=== PATIENT | female | born 1960 | race Caucasian/White ===

== ENCOUNTER 2020-01-15 09:34 | Outpatient (CLI) | payer BC, SELFPAY ==
--- NOTE | 2020-01-15 09:44 | MM_ITS ---
WS: [id number] SCREENING DIGITAL MAMMOGRAM WITH CAD HISTORY: SCREENING COMPARISON: 01/16/2019 and 01/14/2018 Bilateral CC and MLO views submitted. Computer aided detection analyzed. Breast composition: There are scattered areas of fibroglandular density. No suspicious masses, microc alcifications or architectural distortion. MM/[id number] IMPRESSION: BI-RADS: 1-Negative FOLLOW UP: 1 Year Follow-up
== END 2020-01-15 09:35 | disposition home or self-care (01) ==
LOC: RADSHAW 09:42
PROVIDERS: PCP Nurse Practitioner Family; Visit Provider Nurse Practitioner Family
DX: Z12.31 Encounter for screening mammogram for malignant neoplasm of breast (principal)
CPT/HCPCS: 77067

== ENCOUNTER 2021-03-10 10:34 | Outpatient (CLI) | payer BC, SELFPAY ==
--- NOTE | 2021-03-10 10:45 | MM_ITS ---
WS: [id number] BILATERAL SCREENING DIGITAL MAMMOGRAM WITH CAD HISTORY: SCREENING COMPARISON: 01/15/2020 and 01/16/2019 Bilateral CC and MLO views submitted. Computer aided detection analyzed. Breast composition: There are scattered areas of fibroglandular density. No suspicious masses, microc alcifications or architectural distortion. MM/[id number] IMPRESSION: BI-RADS: 1-Negative FOLLOW UP: 1 Year Follow-up
== END 2021-03-10 10:35 | disposition home or self-care (01) ==
LOC: RADSHAW 10:42
PROVIDERS: PCP Nurse Practitioner Family; Visit Provider Nurse Practitioner Family
DX: Z12.31 Encounter for screening mammogram for malignant neoplasm of breast (principal)
CPT/HCPCS: 77067

== ENCOUNTER 2022-09-06 09:16 | Outpatient (CLI) | payer OTHER, SELFPAY ==
--- NOTE | 2022-09-06 09:34 | MM_ITS ---
WS: [id number] SCREENING DIGITAL TOMOSYNTHESIS MAMMOGRAM WITH CAD HISTORY: SCREENING COMPARISON: 03/10/2021 and 01/15/2020 Bilateral CC and MLO with tomosynthesis views submitted. Synthetic mammography reviewed. Computer aid ed detection analyzed. Breast composition: There are scattered areas of fibroglandular density. No suspicious masses, microc alcifications or architectural distortion. MM/[id number] IMPRESSION: BI-RADS: 1-Negative FOLLOW UP: 1 Year Follow-up
== END 2022-09-06 09:17 | disposition home or self-care (01) ==
LOC: RAD 09:17
PROVIDERS: PCP Nurse Practitioner Family; Visit Provider Nurse Practitioner Family
DX: Z12.31 Encounter for screening mammogram for malignant neoplasm of breast (principal)
CPT/HCPCS: 77063; 77067

== ENCOUNTER 2022-12-30 18:22 | Emergency (ER) | payer OTHER, SELFPAY ==
--- NOTE | 2022-12-30 18:48 | ECG_ITS ---
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 Measurements Intervals [place] Rate: 80 P: 58 MN: 176 QRS: 63 QRSD: 96 T: 74 QT: 391 QTc: 452 Interpretive Statements SINUS RHYTHM POSSIBLE LEFT ATRIAL ENLARGEMENT [-0.1mV P-WAVE IN V1/V2] No previous ECG available for comparison Electronically Signed On 12-31-2022 20:57:43 CDT by Sharona Adler M.D. [id number]
--- NOTE | 2022-12-30 18:48 | CTR_ITS ---
PROCEDURE INFORMATION: Exam: CTA Chest With Contrast Exam date and time: 12/30/2022 9:16 PM Age: 62 years old Clinical indication: Pain and abnormal findings; Abnormal lab test; Abdominal pain; Other: N/a; Cough and shortness of breath; Patient HX: Cough, SOB, left flank pain, and diarrhea. Elevated wbc. Meniscus surgery in October 2022. ; Additional info: Flank pain, SOB TECHNIQUE: Imaging protocol: Computed tomographic angiography of the chest with contrast. Exam focused on the arteries. 3D rendering (Not supervised by radiologist): MIP and/or 3D reconstructed images were created by the technologist. Radiation optimization: All CT scans at this facility use at least one of these dose optimization techniques: automated exposure control; mA and/or kV adjustment per patient size (includes targeted exams where dose is matched to clinical indication); or iterative reconstruction. Contrast material: OMNI 350; Contrast volume: 100 ml; Contrast route: INTRAVENOUS (IV); REPORTING DATA: Count of CT and Cardiac NM exams in prior 12 months: This patient has received 0 known CTs and 0 known cardiac nuclear medicine studies in the 12 months prior to the current study. COMPARISON: No relevant prior studies available. RADIATION DOSE METRICS: Total DLP (mGy-cm): 1003.67 FINDINGS: Pulmonary arteries: Normal. No pulmonary emboli. Aorta: Unremarkable. No aortic aneurysm. No aortic dissection. Lungs: Patchy bilateral dependent atelectasis versus infiltrate. Pleural spaces: Unremarkable. No pneumothorax. No pleural effusion. Heart: Unremarkable. No cardiomegaly. No pericardial effusion. Lymph nodes: Scattered subcentimeter short axis nonspecific mediastinal lymph nodes. Bones/joints: Unremarkable. No acute fracture. Soft tissues: Unremarkable. PROCEDURE INFORMATION: Exam: CT Abdomen And Pelvis With Contrast Exam date and time: 12/30/2022 9:16 PM Age: 62 years old Clinical indication: Pain and abnormal findings; Abnormal lab test; Abdominal pain; Other: N/a; Cough and shortness of breath; Patient HX: Cough, SOB, left flank pain, and diarrhea. Elevated wbc. Meniscus surgery in October 2022. ; Additional info: Flank pain, SOB TECHNIQUE: Imaging protocol: Computed tomography of the abdomen and pelvis with contrast. Radiation optimization: All CT scans at this facility use at least one of these dose optimization techniques: automated exposure control; mA and/or kV adjustment per patient size (includes targeted exams where dose is matched to clinical indication); or iterative reconstruction. Contrast material: OMNI 350; Contrast volume: 100 ml; Contrast route: INTRAVENOUS (IV); REPORTING DATA: Count of CT and Cardiac NM exams in prior 12 months: This patient has received 0 known CTs and 0 known cardiac nuclear medicine studies in the 12 months prior to the current study. COMPARISON: No relevant prior studies available. RADIATION DOSE METRICS: Total DLP (mGy-cm): 1003.67 FINDINGS: Liver: Normal. No mass. Gallbladder and bile ducts: Cholelithiasis with gallbladder distension, ultrasound could further evaluate this. Pancreas: Normal. No ductal dilation. Spleen: Normal. No splenomegaly. Adrenal glands: Normal. No mass. Kidneys and ureters: Bilateral renal cysts, negative for follow-up advised. Right kidney lower pole nonobstructing calyceal stone. Mild heterogeneity of the kidneys, please correlate for pyelonephritis, heterogeneity a due to contrast bolus timing is also a consideration for the appearance. Stomach and bowel: Prominent fluid in the small bowel without dilation may reflect enteritis. Appendix: No evidence of appendicitis. Intraperitoneal space: Unremarkable. No free air. No significant fluid collection. Vasculature: Unremarkable. No abdominal aortic aneurysm. Lymph nodes: Unremarkable. No enlarged lymph nodes. Urinary bladder: Unremarkable as visualized. Reproductive: 16 mm calcified uterine fibroid. Bones/joints: Unremarkable. No acute fracture. Soft tissues: Unremarkable. CT/CT angio chest w abd pel w con IMPRESSION: 1. Negative for pulmonary embolus. 2. Scattered subcentimeter short axis nonspecific mediastinal lymph nodes. 3. Patchy bilateral dependent atelectasis versus infiltrate. IMPRESSION: 1. Cholelithiasis with gallbladder distension, ultrasound could further evaluate this. 2. Bilateral renal cysts, negative for follow-up advised. 3. Mild heterogeneity of the kidneys, please correlate for pyelonephritis, heterogeneity a due to contrast bolus timing is also a consideration for the appearance. 4. Right kidney lower pole nonobstructing calyceal stone. 5. Prominent fluid in the small bowel without dilation may reflect enteritis. 6. 16 mm calcified uterine fibroid. COMMENTS: Consistent with the [employer]'s Incidental Findings Committee white paper (J Am Salomon Radiol 2018): Any incidental renal lesion less than 1 cm or classified as too small to characterize, or any incidental cystic renal lesion characterized as simple-appearing, is likely benign. No follow-up imaging is recommended for these lesions per consensus recommendations based on imaging criteria.
[2022-12-30 18:52] VITALS: BP 138/74; PULSE 81; RESP 16; TEMP 36.6; O2SAT 95; BMI 24.4
[2022-12-30 19:53] LABS: Basophils # 0.1 10^3/uL (0.0-0.1); Basophils % 0.4 %; Hematocrit 42.7 % (37.0-47.0); Hemoglobin 13.2 g/dL (11.5-15.3); Lymphocytes # 0.9 10^3/uL (0.8-4.8); Lymphocytes % 7.1 %; Mean Corpuscular HGB Conc 30.9 g/dL (30.0-36.0); Mean Corpuscular Hemoglobin 31.1 pg (28.0-34.0); Mean Corpuscular Volume 100.5 fl (81-99); Mean Platelet Volume 10.8 fL (7.4-10.4); Monocytes % 7.3 %; Neutrophils # 11.26 10^3/uL (1.8-7.7); Neutrophils % 84.9 %; Nucleated Red Blood Cells % 0 %; Platelet Count 301 10^3/cmm (130-400); Red Blood Count 4.25 10^6/uL (4.1-5.3); White Blood Count 13.3 10^3/uL (4.0-10.0)
[2022-12-30 20:05] LABS: INR 0.97 (0.8-1.2); Partial Thromboplastin Time 28.1 SECONDS (23.9-36.7)
[2022-12-30 20:28] LABS: Alanine Aminotransferase 13 U/L (0-33); Albumin Level 4.2 g/dL (3.5-5.2); Alkaline Phosphatase 80 U/L (35-105); Aspartate Amino Transferase 17 U/L (0-32); Blood Urea Nitrogen 15 mg/dL (8-23); Calcium 9.3 mg/dL (8.5-10.5); Carbon Dioxide 23 mmol/L (22-29); Chloride 101 mmol/L (98-107); Creatinine Clr Calc Pharmacy 86.5391; Globulin 2.6 g/dL (1.3-4.6); Glomerular Filtration Rate 72.9 mL/min (90-130); Glucose 96 mg/dL (65-115); NT Pro B Type Natriuretic Pept 41 pg/mL (0-125); Osmolality Calculated 285 mOsm/kg (285-295); Sodium 137 mmol/L (136-145); Total Bilirubin 0.3 mg/dL (0.15-1.2); Total Protein 6.8 g/dL (6.6-8.7)
[2022-12-30 20:40] LABS: Troponin(5th) Baseline < 6 ng/L (0-10)
--- NOTE | 2022-12-30 20:48 | ECG_ITS ---
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 Measurements Intervals [place] Rate: 64 P: 12 IA: 193 QRS: 4 QRSD: 98 T: -4 QT: 430 QTc: 445 Interpretive Statements SINUS RHYTHM Compared to ECG 12/30/2022 19:06:20 No significant changes Electronically Signed On 12-31-2022 21:09:14 CDT by Sharona Adler M.D. [id number]
[2022-12-30] MEDS: iohexol 350 mg/mL 500 mL Btl (per mL) IV (21:17)
[2022-12-30 22:13] LABS: Urine Appearance Clear (CLEAR); Urine Color Colorless (Yellow); pH Urine 8 (5-7)
[2022-12-30 22:14] LABS: Add Urine Microscopic? YES; Bilirubin Urine Neg (Negative); Blood Urine 3+ (Negative); Glucose Urine UA Norm (Normal); Ketones Urine Negative (Negative); Leukocyte Esterase Urine Trace (Negative); Nitrate Urine Negative (Negative); Protein Urine Trace (Negative); Specific Gravity, Urine 1.005 (1.005-1.030); Sulfosalicylic Acid Urine Negative (Negative); Urobilinogen Urine Norm (Negative)
[2022-12-30 22:15] LABS: Add Urine Culture? Yes; Bacteria Urine TRACE /hpf; RBC Urine 40-50 /hpf (0-2); Squamous Epithelial Cell Urine 0-4 /hpf (0-5); WBC Urine 0-4 /hpf (0-5)
[2022-12-30 22:58] VITALS: BP 138/74; PULSE 81; RESP 16; TEMP 36.6; O2SAT 95
--- NOTE | 2022-12-31 01:12 | ED_ITS ---
HPI - Abdominal Pain General: Chief Complaint: Abdominal Pain Stated Complaint: back pain, diarriah , tingling from neck down Time Seen by Provider: 12/30/22 21:04 Source: patient and family Mode of arrival: ambulatory Limitations: no limitations History of Present Illness: Patient presents emergency department today at the request of an outlying clinic for evaluation treatment of various symptoms. Patient states that this afternoon after lunch she began having some abdominal pains-primarily on the left flank. She continued to have severe left mid back and left flank pain so she took diclofenac. Patient has diclofenac secondary to a recent left knee surgery for which she is still in an immobilizer and using crutches. She got very little relief so she took it tramadol. She states she then had significant improvement of her pain which has continued to be controlled to this time. The concern is is that she developed some tingling in her back and, with her recent surgery and immobilization, [facility]. The emergency room physician here cindy was made aware of the concerns regarding this patient and, patient was met here in the emergency department with lab and imaging orders upon arrival. Patient is denying chest pain or shortness of breath at this time. Review of Systems General: Reports: 10 or more systems reviewed and unremarkable except in HPI and below Physical Exam Const: COMMON NORMALS: no acute distress, patient oriented x3 and alert HENMT: COMMON NORMALS: normocephalic, atraumatic, hearing grossly normal bilaterally and moist oral mucous membranes HEAD & SCALP: normocephalic and atraumatic Eye: COMMON NORMALS: Equal, round and reactive pupils present, EOMs intact bilaterally and conjunctivae normal CONJUNCTIVA: Yes conjunctivae normal PUPIL: Yes Equal, round and reactive pupils present Neck/C-Spine: COMMON NORMALS: full ROM and no JVD Lymph: LYMPHATIC: no lymphadenopathy noted Resp: COMMON NORMALS: normal respiratory effort, No retractions, No use of accessory muscles and clear to auscultation bilaterally AUSCULTATION: clear to auscultation bilaterally Cardio: COMMON NORMALS: no JVD, regular rate and regular rhythm RATE: regular rate RHYTHM: regular rhythm GI: OTHER: Abdomen is soft. No acute pain at this time. : COMMON NORMALS: Yes no CVA tenderness BLADDER/KIDNEY EXAM: Yes no CVA tenderness Back/Pelvis: COMMON NORMALS: no CVA tenderness, no thoracic nor lumbar tenderness and thoraco-lumbar ROM normal Extremity: COMMON NORMALS: normal to inspection and capillary refill normal Neuro: COMMON NORMALS: patient oriented x3 SENSORIUM/ORIENTATION: Yes alert Psych: COMMON NORMALS: mental status grossly normal, Normal thought process present, cooperative, normal affect and activity/motor behavior normal THOUGHT PROCESS: Normal thought process present Skin: COMMON NORMALS: no rashes or lesions noted and no wounds GENERAL SKIN EXAM: no rashes or lesions noted Course Vital Signs: Vital signs: Vital Signs Temperature 97.8 F 12/30/22 22:58 Pulse Rate 81 12/30/22 22:58 Respiratory Rate 16 12/30/22 22:58 Blood Pressure 138/74 12/30/22 22:58 Pulse Oximetry 95 12/30/22 22:58 Oxygen Delivery Me thod Room Air 12/30/22 18:52 MDM - Abdominal Pain Medical Decision Making Patient presented to the ER today at the request of an outlying clinic for concerns of potential blood clot or complication secondary to recent left knee surgery. Patient's lab work is generally unremarkable though her urinalysis indicates quite a bit of blood. CT examination of the chest showed no signs of any blood clots but, CT of the abdomen and pelvis did show some hydronephrosis of the left kidney as well as a renal stone in the inferior pole. Based on the patient's complaints of sudden and severe pain only on the left side which has resolved resulting in hematuria on urinalysis examination and hydronephrosis on CT, I do believe the patient most likely passed a kidney stone today. After discussing with Dr. Cazares he also agrees. I discussed with patient and these findings on examination and evaluation and that they tend to point towards recent kidney stone and had a long discussion regarding urinary calculi. Informational handout regarding kidney stones provided for the reference at home. There was also incidental finding of gallstones and we went over signs and symptoms of gallstones for which patient should be seen and reevaluated but, should notify primary care for continued monitoring. Patient also had some small bowel inflammation and signs of a colitis. Patient may have loose stools for couple of days based on these findings. All in all, patient should notice improvement of her left flank pain but, strict return precautions for any change in any of these findings were discussed for which she needs to be seen and reevaluated immediately. Patient verbalized understanding and agreement to treatment plan. Differential Diagnosis Likely calculus of kidney, constipation, diverticulitis, gastroenteritis and small bowel obstruction Lab Data 12/30/22 19:42 12/30/22 19:42 Labs/Radiology: Radiology Impressions Chest/Abdomen/Pelvis CT 12/30/22 18:48 IMPRESSION: 1. Negative for pulmonary embolus. 2. Scattered subcentimeter short axis nonspecific mediastinal lymph nodes. 3. Patchy bilateral dependent atelectasis versus infiltrate. IMPRESSION: 1. Cholelithiasis with gallbladder distension, ultrasound could further evaluate this. 2. Bilateral renal cysts, negative for follow-up advised. 3. Mild heterogeneity of the kidneys, please correlate for pyelonephritis, heterogeneity a due to contrast bolus timing is also a consideration for the appearance. 4. Right kidney lower pole nonobstructing calyceal stone. 5. Prominent fluid in the small bowel without dilation may reflect enteritis. 6. 16 mm calcified uterine fibroid. COMMENTS: Consistent with the [employer] [employer]'s Incidental Findings Committee white paper (J Am Salomon Radiol 2018): Any incidental renal lesion less than 1 cm or classified as too small to characterize, or any incidental cystic renal lesion characterized as simple-appearing, is likely benign. No follow-up imaging is recommended for these lesions per consensus recommendations based on imaging criteria. Laboratory Results WBC 13.3 10^3/uL (4.0-10.0) H 12/30/22 19:42 RBC 4.25 10^6/uL (4.1-5.3) 12/30/22 19:42 Hgb 13.2 g/dL (11.5-15.3) 12/30/22 19:42 Hct 42.7 % (37.0-47.0) 12/30/22 19:42 MCV 100.5 fl (81-99) H 12/30/22 19:42 MCH 31.1 pg (28.0-34.0) 12/30/22 19:42 MCHC 30.9 g/dL (30.0-36.0) 12/30/22 19:42 RDW 13.0 % (12.1-15.1) 12/30/22 19:42 Plt Count 301 10^3/cmm (130-400) 12/30/22 19:42 MPV 10.8 fL (7.4-10.4) H 12/30/22 19:42 Neut % (Auto) 84.9 % 12/30/22 19:42 Lymph % (Auto) 7.1 % 12/30/22 19:42 [place] % (Auto) 7.3 % 12/30/22 19:42 Eos % (Auto) 0.0 % 12/30/22 19:42 Baso % (Auto) 0.4 % 12/30/22 19:42 Neut # (Auto) 11.26 10^3/uL (1.8-7.7) H 12/30/22 19:42 Lymph # (Auto) 0.9 10^3/uL (0.8-4.8) 12/30/22 19:42 [place] # (Auto) 1.0 10^3/uL (0.2-0.9) H 12/30/22 19:42 Eos # (Auto) 0.0 10^3/uL (0.0-0.8) 12/30/22 19:42 Baso # (Auto) 0.1 10^3/uL (0.0-0.1) 12/30/22 19:42 Nucleated RBC % (auto) 0 % 12/30/22 19:42 Nucleated RBCs # 0.0 /100WBC 12/30/22 19:42 PT 13.20 SECONDS (12.1-14.9) 12/30/22 19:42 INR 0.97 (0.8-1.2) 12/30/22 19:42 APTT 28.1 SECONDS (23.9-36.7) 12/30/22 19:42 Sodium 137 mmol/L (136-145) 12/30/22 19:42 Potassium 4.0 mmol/L (3.5-5.1) 12/30/22 19:42 Chloride 101 mmol/L (98-107) 12/30/22 19:42 Carbon Dioxide 23 mmol/L (22-29) 12/30/22 19:42 Anion Gap 17.0 (5-19) 12/30/22 19:42 BUN 15 mg/dL (8-23) 12/30/22 19:42 Creatinine 0.8 mg/dL (0.5-0.9) 12/30/22 19:42 GFR Calculation 72.9 mL/min (90-130) L 12/30/22 19:42 Glucose 96 mg/dL (65-115) 12/30/22 19:42 Calculated Osmolality 285 mOsm/kg (285-295) 12/30/22 19:42 Calcium 9.3 mg/dL (8.5-10.5) 12/30/22 19:42 Total Bilirubin 0.3 mg/dL (0.15-1.2) 12/30/22 19:42 AST 17 U/L (0-32) 12/30/22 19:42 ALT 13 U/L (0-33) 12/30/22 19:42 Alkaline Phosphatase 80 U/L (35-105) 12/30/22 19:42 Troponin T Baseline < 6 ng/L (0-10) 12/30/22 19:42 NT-Pro-B Natriuret Pep 41 pg/mL (0-125) 12/30/22 19:42 Total Protein 6.8 g/dL (6.6-8.7) 12/30/22 19:42 Albumin 4.2 g/dL (3.5-5.2) 12/30/22 19:42 Globulin 2.6 g/dL (1.3-4.6) 12/30/22 19:42 Urine Color Colorless (Yellow) 12/30/22 21:56 Urine Appearance Clear (CLEAR) 12/30/22 21:56 Urine pH 8 (5-7) H 12/30/22 21:56 Ur Specific [place] 1.005 (1.005-1.030) 12/30/22 21:56 Urine Protein Trace (Negative) 12/30/22 21:56 Urine Glucose (UA) Norm (Normal) 12/30/22 21:56 Urine Ketones Negative (Negative) 12/30/22 21:56 Urine Blood 3+ (Negative) H 12/30/22 21:56 Urine Nitrate Negative (Negative) 12/30/22 21:56 Urine Bilirubin Neg (Negative) 12/30/22 21:56 Prot Sulfosalicylic Acd Negative (Negative) 12/30/22 21:56 Urine Urobilinogen Norm mg/dL (Negative) 12/30/22 21:56 Ur Leukocyte Esterase Trace (Negative) H 12/30/22 21:56 Urine RBC 40-50 /hpf (0-2) H 12/30/22 21:56 Urine WBC 0-4 /hpf (0-5) H 12/30/22 21:56 Ur Squamous Epith Cells 0-4 /hpf (0-5) H 12/30/22 21:56 Amorphous Sediment Not Reportable 12/30/22 21:56 Urine Bacteria Trace /hpf (NONE) 12/30/22 21:56 Discharge Plan Discharge Patient Disposition: Home Clinical Impression: Acute left flank pain Prescriptions: No Action diclofenac sodium 75 mg tablet,delayed release (DR/EC) 75 mg PO BID ranolazine [Ranexa] 500 mg tablet extended release 12 hr 500 mg PO BID Qty: 60 3RF cetirizine [Allergy Relief (cetirizine)] 10 mg tablet See Rx Instructions .ROUTE .COMPLEX Qty: 30 0RF Dose Instruction: Take 1 tablet by mouth once daily Rx Instructions: Take 1 tablet by mouth once daily; NEEDS APPOINTMENT TO ESTABLISH FOR FURTHER FILLS Discharge Orders: Discharge ED (Routine); Ordered 12/30/22 Ordered By: Adelina Avendano Referrals: Swathi Yang APN [Primary Care Provider] - Discharge Diet: Low Fat Discharge Activity: Increase activity as tolerated Patient Instructions: Gallstones (ED), Kidney Stones (ED) Activity Restrictions/Additional Instructions: Your evaluation today was able to rule out cardiac concerns or pulmonary embolism. However, the scan of your abdomen revealed incidental findings of gallstones. These are typically found when patients are complaining of upper or right upper quadrant abdominal pain-especially after eating. If you notice these findings we do recommend letting your primary care doctor know as you may require an evaluation by gastroenterology to discuss more definitive treatment. However, tonight we do believe you have recently passed a kidney stone. There are findings of some increased fluid on your left kidney and there is blood in your urine without signs of infection. As we discussed, kidney stones are very traumatic and cause cuts within the urinary tract-leading to blood in the urine. The scan does not show any currently in your urinary tract and we do believe you have completely passed it but, there is still residual discomfort for a day or 2 due to the trauma of passing a kidney stone. Unfortunately, you still have a stone in the kidney. While the stones do not cause any pain, it is possible for them to try and enter the ureter which would lead to recurrence of flank pain. We do recommend being seen and reevaluated if you have concerns for a kidney stone trying to pass. You had some generalized small bowel inflammation indicating most likely a touch of a stomach bug so you may have a day or 2 of some loose stools. Watch for fevers, vomiting, or blood in your stool. We do recommend being seen and reevaluated if any of those occur. Coding Level of Care Code ED [employer]yclable [employer] Sorter for [place] Olivas
== END 2022-12-30 22:59 | disposition home or self-care (01) ==
PROVIDERS: Emergency Medicine; Emergency Provider Physician Assistant; PCP Nurse Practitioner Family
DX: R10.9 Unspecified abdominal pain (principal); K80.20 Calculus of gallbladder without cholecystitis without obstruction
CPT/HCPCS: 36415; 71275; 74177; 80053; 81001; 83880; 84484; 85025; 85610; 85730; 87086; 93005; 99285; Q9967

== ENCOUNTER 2023-09-10 15:28 | Outpatient (CLI) | payer OTHER, SELFPAY ==
--- NOTE | 2023-09-10 15:41 | MM_ITS ---
WS: [id number] BILATERAL 3D TOMOSYNTHESIS DIGITAL SCREENING MAMMOGRAPHY WITH CAD CLINICAL INFORMATION: SCREEN HISTORY: Screening mammogram. No current complaints. COMPARISON: 2022 TECHNIQUE: Bilateral CC and MLO views. FINDINGS: Scattered fibroglandular densities bilaterally. No suspicious focal mass, asymmetry, calcifications, or architectural distortion. No evidence of malignancy. IMPRESSION: MM/[id number] BI-RADS: 1-Negative FOLLOW UP: 1 Year Follow-up Recommend return to annual screening mammography.
== END 2023-09-10 15:29 | disposition home or self-care (01) ==
LOC: RAD 15:29
PROVIDERS: PCP Nurse Practitioner Family; Visit Provider Nurse Practitioner Family
DX: Z12.31 Encounter for screening mammogram for malignant neoplasm of breast (principal)
CPT/HCPCS: 77063; 77067

== ENCOUNTER 2024-09-12 11:39 | Outpatient (CLI) | payer OTHER, SELFPAY ==
--- NOTE | 2024-09-12 11:45 | MM_ITS ---
WS: [id number] BILATERAL 3D TOMOSYNTHESIS DIGITAL SCREENING MAMMOGRAPHY WITH CAD CLINICAL INFORMATION: SCREENING HISTORY: Screening mammogram. No current complaints. COMPARISON: 2023 TECHNIQUE: Bilateral CC and MLO views. FINDINGS: Scattered fibroglandular densities bilaterally. No suspicious focal mass, asymmetry, calcifications, or architectural distortion. No evidence of malignancy. MM/MM scr BI tomosynthesis [id number] IMPRESSION: DENSITY: There are scattered areas of fibroglandular density. BI-RADS: 1 - Negative. FOLLOW UP: 1 Year Follow-up Recommend return to annual screening mammography.
== END 2024-09-12 11:40 | disposition home or self-care (01) ==
LOC: RAD 11:40
PROVIDERS: PCP Nurse Practitioner Family; Visit Provider Nurse Practitioner Family
DX: Z12.31 Encounter for screening mammogram for malignant neoplasm of breast (principal); R92.323 Mammographic fibroglandular density, bilateral breasts
CPT/HCPCS: 77063; 77067

== ENCOUNTER 2024-10-29 15:23 | Outpatient (CLI) | payer OTHER, SELFPAY ==
--- NOTE | 2024-10-29 15:28 | XR_ITS ---
WS: [id number] SCREENING DEXA SCAN XIHA CLINICAL INFORMATION: POSTMENOPAUSAL COMPARISON: None. FINDINGS: The L1-L4 bone mineral density measures 0.998 g/cm2. This corresponds to a T score score of -1.5 and Z score of -0.6. Left femoral neck bone mineral density measures 0.809 g/cm2. This corresponds to a T score of -1.6 and Z score of -0.8. Right femoral neck bone mineral density measures 0.791 g/cm2. This corresponds to a T score -1.7of and Z score of -1.0. Mean femoral neck bone mineral density measures 0.800 g/cm2. This corresponds to a T score of -1.6 and Z score of -0.9. XR/XR DEXA axial skeleton* [id number] IMPRESSION: Osteopenia lumbar spine. Osteopenia femoral necks. Patient's FRAX calculated 10 year probability for major osteoporotic fracture i s 8.6% and osteoporotic hip fracture is 0.8%.
== END 2024-10-29 15:24 | disposition home or self-care (01) ==
LOC: RAD 15:25
PROVIDERS: PCP Nurse Practitioner Family; Visit Provider Nurse Practitioner Family
DX: Z78.0 Asymptomatic menopausal state (principal); M85.89 Other specified disorders of bone density and structure, multiple sites
CPT/HCPCS: 77080